=== PATIENT | male | born 1975 ===

== ENCOUNTER 2025-07-05 16:05 | Emergency (ER) | payer BC, SELFPAY ==
[2025-07-05 16:07] VITALS: BP 136/82
--- NOTE | 2025-07-05 17:41 | ED.GENMED ---
History of Present Illness
General
Chief Complaint: Skin Surface Trauma
Source: patient
Exam Limitations: none
Time Seen by Provider: 07/05/25 16:13
History of Present Illness
History of Present Illness:
49yo [id number] male presenting with his daughter for evaluation of a right upper arm laceration that was sustained about 1 hour prior to arrival. He was doing some construction work around the house when he was cut by an unknown object in
the right upper arm. Bleeding controlled on arrival. No paresthesias. Unknown last Tdap.
Phy Exam
General Physical Exam
General Presentation: well appearing and no apparent distress
General Skin: warm and dry
General Habitus: normal
General Mental: alert
Pulmonary Exam
Pulmonary Exam: no respiratory distress
Neurological Exam
Neurological Exam: alert
Live Coma Scale
Eye Opening: Spontaneous
Verbal Response: Oriented
Motor Response: Obeys Commands
GCS Total Score: 15
Skin Exam
Skin Exam: warm/dry and other (8cm gaping laceration noted to R upper inner arm with exposed adipose tissue. No active bleeding. 2+ radial pulse. Motor and sensation intact in hand. )
Psychiatric Exam
Psychiatric Exam: normal mood/affect
Course
Orders/Labs/Results
Orders:
Orders
07/05/25 17:35
Tetanus/Diphth/Acelpertussis [Adacel] 0.5 ml IM .ONCE ONE
Vital Signs
Initial and Last Documented VS:
Initial Vital Signs
Temp Pulse Resp BP Pulse Ox
98.4 F 76 16 136/82 100
07/05/25 16:07 07/05/25 16:07 07/05/25 16:07 07/05/25 16:07 07/05/25 16:07
Last Documented Vital Signs
Temp Pulse Resp BP Pulse Ox
98.4 F 76 16 136/82 100
07/05/25 16:07 07/05/25 16:07 07/05/25 16:07 07/05/25 16:07 07/05/25 17:42
Procedures
Laceration Closure
Right Upper Medial Arm:
Status of Wound: clean
Size of Wound in cm: 8
Description of Wound Edges: sharp
Preparation: cleaned with saline
Anesthesia: 1% Lidocaine with epi
Wound exploration: explored to base- no FB
Type of Closure: single layer closure
Skin Closure Material: 3-0 nylon
Number of sutures: 10
MDM/Problems Addressed
Differential Diagnosis Includes:
49yoM here with a laceration to his R upper arm. Gaping laceration noted on exam with exposed adipose tissue. RUE is neurovascularly intact. Wound irrigated and repaired as above. Home wound care discussed. Tdap updated. Patient advised to have
sutures removed in 10 days and return to the ER with any signs of infection. Daughter in agreement with plan and he was discharged in stable condition.
*Pulse Oximetry
SaO2: 100
Oxygen Mode of Delivery: Room air
Patient hypoxic: no
*Critical Care Note
Total Time (30-74mins, 75-104mins- exclusive of procedures): Not Applicable
ED Attending Note
-
Portions of this chart may have been created with voice recognition software.� Occasional wrong word or��sound alike� substitutions may have occurred due to the inherent limitations of voice recognition software.
Discharge Plan
Departure
Patient Disposition: Home (Routine Discharge)
Date of Disposition: 07/05/25
Time of Disposition: 17:43
Patient with high blood pressure during this ER visit?: No
Discharge Problem:
Laceration of right upper arm
Instructions: Laceration Repair With Stitches (DC)
Referrals:
NONE,* [Family Provider, Internal Medicine]
Activity Restrictions/Additional Instructions:
Keep wound clean and dry.
Sutures should be removed in 10 days. Return to the ER with any signs of infection.
Interventions
Interventions:
*Risk Screen - Suicide Last Done: 07/05/25 16:33
*General Assessment Last Done: 07/05/25 16:33
*Neglect/Abuse Screening Last Done: 07/05/25 16:31
*ED COVID-19 Vaccine History Last Done: 07/05/25 16:33
*ED Influenza Vaccine History Last Done: 07/05/25 16:33
[facility] Fall Risk Assessment Tool Last Done: 07/05/25 16:33
*Nursing Disposition Last Done: 07/05/25 17:50
ED-Skin Assessment Last Done: 07/05/25 16:31
Discharge Date and Time
Discharge Date/Time: 07/05/25 17:50
Print Language: Niue[place]
[2025-07-05] MEDS: ADACEL 0.5 ML IM (17:43)
== END 2025-07-05 17:50 | disposition home or self-care (01) ==
LOC: EMR 16:05
PROVIDERS: EMERGENCY PHYSICIAN Student in an Organized Health Care Education/Training Program
DX: S41.111A Laceration without foreign body of right upper arm, initial encounter (principal); W45.8XXA Other foreign body or object entering through skin, initial encounter; Y93.H3 Activity, building and construction
CPT/HCPCS: 90471; 12004; 99282; 90715